=== PATIENT | female | born 2000 | race Native Hawaiian/Other Pacific Islander ===

== ENCOUNTER 2022-04-24 17:03 | Observation (INO) | payer MEDICAID ==
[2022-04-24 17:42] LABS: Appearance CLEAR (CLEAR); Bilirubin NEGATIVE (NEGATIVE); Dipstick done @ ? MAIN LAB; Glucose NEGATIVE (NEGATIVE); Ketones NEGATIVE (NEGATIVE); Nitrite NEGATIVE (NEGATIVE); Protein,Urine Dip NEGATIVE (Negative); RBC NEGATIVE Ery/ul (0-5); Urobilinogen 0.2 mg/dL (0-1)
[2022-04-24 17:44] LABS: Epithelial Cells RARE /HPF (FEW); Mucus SLIGHT /HPF (NEGATIVE); Urine Cultured Indicated? NO
[2022-04-24 17:46] LABS: Hemoglobin 10.4 g/dL (12.0-16.0); Mean Cell Volume 81.6 fL (78-100); Mean Corpuscular Hemoglobin 26.5 pg (26-32); Mean Corpuscular Hgb Concent. 32.5 g/dL (32-36); Mean Platelet Volume 11.5 fL (7.5-11.0); Platelet Count 206 x10^3/uL (150-450); Red Blood Count 3.92 x10^6/uL (4.1-5.4); Red Cell Distribution Width 13.5 % (11.5-14.0); White Blood Count 11.3 x10^3/uL (4.0-10.5)
[2022-04-24 17:58] LABS: Amphetamine,Urine NEGATIVE (NEGATIVE); Barbiturate,Urine NEGATIVE (NEGATIVE); Benzodiazepine,Urine NEGATIVE (NEGATIVE); Cocaine,Urine NEGATIVE (NEGATIVE); Opiate,Urine NEGATIVE (NEGATIVE); PCP,Urine NEGATIVE (NEGATIVE); THC,Urine NEGATIVE (NEGATIVE)
[2022-04-24 17:59] LABS: ALBUMIN 3.5 g/dL (3.5-5.0); ALKALINE PHOSPHATASE 131 U/L (38-126); ANION GAP 10.7 MEQ/L (5-15); BLOOD UREA NITROGEN 5 mg/dL (7-17); CHLORIDE 106 mmol/L (98-107); Calcium 9.7 mg/dL (8.4-10.2); Carbon Dioxide 22 mmol/L (22-30); Creatinine 1 0.51 mg/dL (0.52-1.04); EST GLOMERULAR FILTRATION RATE > 60.0 ML/MIN; Glucose 93 mg/dL (74-106); SGOT/AST 14 U/L (14-36); SGPT/ALT 11 U/L (0-35); SODIUM 136 mmol/L (137-145); Total Protein 6.7 g/dL (6.3-8.2); Uric Acid 3.4 mg/dL (2.6-6.0)
[2022-04-24 18:03] LABS: Methadone,Urine NEGATIVE (NEGATIVE)
[2022-04-24 18:22] LABS: Potassium 2.9 mmol/L (3.5-5.1)
[2022-04-24 18:33] LABS: Creatinine, Urine Random 91.4 mg/dl; Protein Creatinine Ratio, Ran. 0.22 mg/mg (0.0-0.15)
[2022-04-24] MEDS ORDERED: Klor Con PO ONE ×2 (18:34→18:51)
[2022-04-24] MEDS ORDERED: POTASSIUM CHLORIDE 20 mEq IN WATER 100ML 20 MEQ/100 ML BAG IV ONE (18:35)
[2022-04-24] MEDS ORDERED: POTASSIUM CHLORIDE 20 mEq IN WATER 100ML 100 ML IV ONE (18:51)
[2022-04-24] MEDS ORDERED: Sodium Chloride 0.9% 1000 ML 1,000 ML ONE (18:59)
[2022-04-24] MEDS ORDERED: Adalat CC 30 MG TABLET PO ONE (19:10)
--- NOTE | 2022-04-24 19:17 | PCM.HP ---
History of Present Illness - Chief Complaint Chief Complaint: OB Check History of Present Illness: is a 22 year old female. 22 yo iup 35 wks gestation with no signific pmhx with hx of previous here for evaluation of questionable rupture of membrane at 930 with mild uterine cramping. denies vaginal bleeding. sees a provider in [place] with dr denney for care.. states hx of genital herpes however denies any outbreak at this time. 170/97, 162/99, 147/98, 148/78, 150/77 labs; cmp potassium 2.9 liver enzymes normal amnisure; negative urine tox; normal pelvix exam; closed posterior a/p iup at 35 wks with gestational htn, hypokalemia will give kcl 20meq iv x 1 will give kcl 20meq po x 1 today will give rx kcl 20meq for next two days will give procardia 30mg xl now and will continue daily secondary to elevated pulse will fu with provider in [place] as scheduled - Social History Smoking Status: Heavy tobacco smoker How long have you smoked: 3-4 years Exposure to second hand smoke: Yes - Physical Exam Vital Signs: Vital Signs - 24 hr Temp Pulse Resp BP BP Pulse Ox 04/24/22 18:35 99 H 150/70 99 04/24/22 18:25 100 H 150/72 100 04/24/22 18:15 97 H 159/74 96 04/24/22 18:05 100 H 149/66 100 04/24/22 17:50 112 H 150/77 04/24/22 17:47 97.8 F 118 H 20 148/78 98 04/24/22 17:45 110 H 18 148/78 99 04/24/22 17:30 115 H 147/98 04/24/22 17:13 109 H 20 162/99 04/24/22 17:05 97.8 F 118 H 18 173/97 98 04/24/22 17:03 97.8 F 118 H 20 162/99 98 Neurologic Exam: alert, oriented x 3 Pelvic Exam: other (closed posterior) Results - Labs Lab/Micro Results: Lab Results-Last 24 Hours 04/24/22 04/24/22 04/24/22 Range/Units 17:20 17:20 17:20 WBC (4.0-10.5) x10^3/uL RBC (4.1-5.4) x10^6/uL Hgb (12.0-16.0) g/dL Hct (35-47) % MCV (78-100) fL MCH (26-32) pg MCHC (32-36) g/dL RDW (11.5-14.0) % Plt Count (150-450) x10^3/uL MPV (7.5-11.0) fL Sodium (137-145) mmol/L Potassium (3.5-5.1) mmol/L Chloride (98-107) mmol/L Carbon Dioxide (22-30) mmol/L Anion Gap (5-15) MEQ/L BUN (7-17) mg/dL Creatinine (0.52-1.04) mg/dL Estimated GFR ML/MIN Glucose (74-106) mg/dL Uric Acid (2.6-6.0) mg/dL Calcium (8.4-10.2) mg/dL Total Bilirubin (0.2-1.3) mg/dL AST (14-36) U/L ALT (0-35) U/L Alkaline Phosphatase (38-126) U/L Serum Total Protein (6.3-8.2) g/dL Albumin (3.5-5.0) g/dL Urinalys Dipstick Clnc MAIN LAB Urine Color YELLOW (YELLOW) Urine Appearance CLEAR (CLEAR) Urine pH 7.0 (5-6) Ur Specific [place] 1.020 (1.005-1.025) POC Urine Protein Conf NEGATIVE (Negative) Urine Ketones NEGATIVE (NEGATIVE) Urine Nitrite NEGATIVE (NEGATIVE) Urine Bilirubin NEGATIVE (NEGATIVE) Urine Urobilinogen 0.2 (0-1) mg/dL Urine Leukocytes NEGATIVE (NEGATIVE) Urine WBC (Auto) 6-10 (0-5) /HPF Urine RBC (Auto) NONE (0-2) /HPF U Epithel Cells (Auto) RARE (FEW) /HPF Urine Bacteria (Auto) NONE (NEGATIVE) /HPF Urine RBC NEGATIVE (0-5) Deniz/ul Urine Mucus (Auto) SLIGHT (NEGATIVE) /HPF Ur Culture Indicated? NO Ur Random Creatinine mg/dl U Random Total Protein (<12) mg/dl U [place] Prot/Creat Ratio (0.0-0.15) mg/mg Urine Glucose NEGATIVE (NEGATIVE) mg/dL POC Amnio Swab Test Negative Urine Opiates Level NEGATIVE (NEGATIVE) Ur Methadone NEGATIVE (NEGATIVE) Urine Barbiturates NEGATIVE (NEGATIVE) Ur Phencyclidine (PCP) NEGATIVE (NEGATIVE) Urine Amphetamine NEGATIVE (NEGATIVE) U Benzodiazepine Level NEGATIVE (NEGATIVE) Urine Cocaine NEGATIVE (NEGATIVE) Urine Marijuana (THC) NEGATIVE (NEGATIVE) 04/24/22 04/24/22 04/24/22 Range/Units 17:20 17:37 17:37 WBC 11.3 H (4.0-10.5) x10^3/uL RBC 3.92 L (4.1-5.4) x10^6/uL Hgb 10.4 L (12.0-16.0) g/dL Hct 32.0 L (35-47) % MCV 81.6 (78-100) fL MCH 26.5 (26-32) pg MCHC 32.5 (32-36) g/dL RDW 13.5 (11.5-14.0) % Plt Count 206 (150-450) x10^3/uL MPV 11.5 H (7.5-11.0) fL Sodium 136 L (137-145) mmol/L Potassium 2.9 L* (3.5-5.1) mmol/L Chloride 106 (98-107) mmol/L Carbon Dioxide 22 (22-30) mmol/L Anion Gap 10.7 (5-15) MEQ/L BUN 5 L (7-17) mg/dL Creatinine 0.51 L (0.52-1.04) mg/dL Estimated GFR > 60.0 ML/MIN Glucose 93 (74-106) mg/dL Uric Acid 3.4 (2.6-6.0) mg/dL Calcium 9.7 (8.4-10.2) mg/dL Total Bilirubin 0.50 (0.2-1.3) mg/dL AST 14 (14-36) U/L ALT 11 (0-35) U/L Alkaline Phosphatase 131 H (38-126) U/L Serum Total Protein 6.7 (6.3-8.2) g/dL Albumin 3.5 (3.5-5.0) g/dL Urinalys Dipstick Clnc Urine Color (YELLOW) Urine Appearance (CLEAR) Urine pH (5-6) Ur Specific [place] (1.005-1.025) POC Urine Protein Conf (Negative) Urine Ketones (NEGATIVE) Urine Nitrite (NEGATIVE) Urine Bilirubin (NEGATIVE) Urine Urobilinogen (0-1) mg/dL Urine Leukocytes (NEGATIVE) Urine WBC (Auto) (0-5) /HPF Urine RBC (Auto) (0-2) /HPF U Epithel Cells (Auto) (FEW) /HPF Urine Bacteria (Auto) (NEGATIVE) /HPF Urine RBC (0-5) Deniz/ul Urine Mucus (Auto) (NEGATIVE) /HPF Ur Culture Indicated? Ur Random Creatinine 91.4 mg/dl U Random Total Protein 20.0 (<12) mg/dl U [place] Prot/Creat Ratio 0.22 H (0.0-0.15) mg/mg Urine Glucose (NEGATIVE) mg/dL POC Amnio Swab Test Urine Opiates Level (NEGATIVE) Ur Methadone (NEGATIVE) Urine Barbiturates (NEGATIVE) Ur Phencyclidine (PCP) (NEGATIVE) Urine Amphetamine (NEGATIVE) U Benzodiazepine Level (NEGATIVE) Urine Cocaine (NEGATIVE) Urine Marijuana (THC) (NEGATIVE) - Other Procedures and Tests Respiratory Therapy 04/24/22 17:58 Smoking Cessation Education ONCE Assessment/Plan (1) Gestational hypertension affecting second Current Visit: Yes Status: Acute Code(s): O13.9 - GESTATIONAL HTN W/O SIGNIFICANT PROTEINURIA, UNSP TRIMESTER (2) Hypokalemia Current Visit: Yes Status: Acute Code(s): E87.6 - HYPOKALEMIA (3) Genital herpes affecting Current Visit: Yes Status: Acute Code(s): O98.319 - OTH INFECT W SEXL MODE OF TRANSMISS COMP PREG, UNSP TRI; A60.09 - HERPESVIRAL INFECTION OF OTHER UROGENITAL TRACT
[2022-04-24] MEDS ORDERED: Sodium Chloride 0.9% 1000 ML 1,000 ML IV SCH (19:30)
[2022-04-24 20:07] VITALS: O2SAT 100
[2022-04-24 21:28] VITALS: BP 139/81; PULSE 130
[2022-04-25] MEDS ORDERED: Adalat CC 30 MG TABLET PO SCH (10:00)
== END 2022-04-24 21:22 | disposition home or self-care (01) ==
LOC: OB 17:03
PROVIDERS: ADMIT Obstetrics & Gynecology; ATTEND Obstetrics & Gynecology
DX: Z34.83 Encounter for supervision of other normal pregnancy, third trimester (principal); Z3A.35 35 weeks gestation of pregnancy
CPT/HCPCS: 36415; 80053; 80307; 81015; 82570; 84112; 84156; 84550; 85027; 93012; G0378; J3480; A9270-GY

== ENCOUNTER 2024-08-09 17:18 | Emergency (ER) | payer OTHER ==
[2024-08-09 18:02] VITALS: RESP 18; TEMP 97.8; O2SAT 100
[2024-08-09 18:15] LABS: HCG URINE TEST NEGATIVE (NEGATIVE)
[2024-08-09 18:19] LABS: Appearance Clear (Clear); Bacteria None Seen /HPF (None Seen); Bilirubin Negative (Negative); Blood Large (Negative); Epithelial Cells None Seen /HPF (None Seen); Glucose, Urine Negative (Negative); Hyaline Casts NONE SEEN /LPF (0-2); Ketones Negative (Negative); Leukocyte Esterase Negative (Negative); Nitrite Negative (Negative); Ph 5.5 (4.6-8.0); Protein,Urine Dip Negative (Negative); RBC 21-50 /HPF (0-5); Urobilinogen 0.2 mg/dL (0.2)
[2024-08-09 18:47] LABS: BASOPHIL % 0.8 % (0.1-1.2); Basophil (Absolute #) 0.06 x10^3/uL (0.01-0.08); Eosinophil % 3.6 % (0.7-5.8); Eosinophil (Absolute #) 0.28 x10^3/uL (0.04-0.36); Hematocrit 39.4 % (34.1-44.9); Hemoglobin 12.5 g/dL (11.2-15.7); IMMATURE GRAN # 0.02 x10^3u/L (0.001-0.031); IMMATURE GRAN % 0.3 % (0.001-0.429); Lymphocyte (Absolute #) 2.21 x10^3/uL (1.18-3.74); Lymphocytes % 28.4 % (19.3-51.7); Mean Cell Volume 77.6 fL (79.4-94.8); Mean Corpuscular Hemoglobin 24.6 pg (25.6-32.2); Mean Corpuscular Hgb Concent. 31.7 g/dL (32.2-35.5); Mean Platelet Volume 11.6 fL (9.4-12.3); Monocytes % 6.4 % (4.7-12.5); Neutrophil % 60.5 % (34.0-71.1); Platelet Count 218 x10^3/uL (182-369); Red Blood Count 5.08 x10^6/uL (3.93-5.22); Red Cell Distribution Width 14.2 % (11.7-14.4); White Blood Count 7.8 x10^3/uL (3.98-10.04)
--- NOTE | 2024-08-09 18:55 | ERPHSYRPT ---
- History of Present Illness Source: patient Exam Limitations: no limitations Patient Subjective Stated Complaint: Vaginal bleeding Triage Nursing Assessment: Patient ambulated back to ED and transferred self to bed. Patient A+O X3. Patient's skin pink, warm and dry. Patient complains of vaginal bleeding for the past 20 days. Patient states she had a vaginal on 04/21/2024 and started on Depo shot in April. Patient states she has been bleeding vaginally since July 21, 2024. Patient states she is using 5-6 regular pads a day. Patient complains of intermittent cramping. Timing/Duration: week(s) Activites at Onset: none Severity of Pain-Max: none Severity of Pain-Current: none Prior abdominal problems: other (vaginal delivery March 2024) Sexual intercourse history: single partner, unprotected intercourse Modifying Factors: Improves With: nothing Associated Symptoms: No abdominal pain, No fever, No chills, No nausea, No vomiting, No Hx Influenza Vaccination/Date Given: No Hx Pneumococcal Vaccination/Date Given: No <FIORELLA KIM - Last Filed: 08/09/24 18:58> <ALISSA MARCANO - Last Filed: 08/09/24 19:28> - History of Present Illness Time Seen by Provider: 08/09/24 18:20 Physician History: 24yo f presents via private vehicle for continued vaginal bleeding that she reports has been ongoing x 20d. Pt reports she had a spontaneous vaginal delivery w/o complications 4 months ago. Pt reports she was started on depo- provera control injection in april, had a normal menstrual cycle in april, then in may had 17 days of menstrual bleeding, started menstruation in mid june and has had continued bleeding since. Pt reports her bleeding is not particularly heavy, has not been passing large clots, does not endorse any recent trauma to the abdomen, denies recent intercourse. Pt denies any significant abdominal pain, denies dysuria or frequency, denies any vomiting or diarrhea. (FIORELLA KIM) Allergies/Adverse Reactions: No Known Drug Allergies Allergy (Unverified 08/09/24 17:51) Home Medications: No Reportable Medications [No Reported Medications] 08/09/24 [History] Travel Risk - International Travel Have you traveled outside of the country in past 3 weeks: No - Emerging Infectious Disease Are you exhibiting symptoms associated with any current EIDs: No <FIORELLA KIM - Last Filed: 08/09/24 18:58> - Review of Systems Constitutional: No Symptoms Respiratory: No Symptoms Cardiac: No Symptoms Abdominal/Gastrointestinal: No Symptoms Genitourinary Symptoms: Vaginal Bleeding <FIORELLA KIM - Last Filed: 08/09/24 18:58> - Past Medical History Pertinent Past Medical History: No Neurological History: No Pertinent History ENT History: No Pertinent History Cardiac History: No Pertinent History Respiratory History: No Pertinent History Endocrine Medical History: No Pertinent History Musculoskeletal History: No Pertinent History GI Medical History: No Pertinent History History: No Pertinent History Psycho-Social History: No Pertinent History Female Reproductive Disorders: No Pertinent History - Past Surgical History Past Surgical History: No Neuro Surgical History: No Pertinent History Cardiac: No Pertinent History Respiratory: No Pertinent History Gastrointestinal: No Pertinent History Genitourinary: No Pertinent History Musculoskeletal: No Pertinent History Female Surgical History: No Pertinent History Other Surgical History: 3 vaginal births - Female History Hx Last Menstrual Period: July 04, 2024 Hx Now: No - Social History Smoking Status: Current every day smoker How long have you smoked: years Exposure to second hand smoke: Yes Drug Use: marijuana - Social Determinants of Health Will the patient participate in the screening: Yes Do you worry about a steady place to live?: No Do you have any problems with any of the following?: No known problems In the past 12 months,have you had to go without utilities?: No Transportation Issues: No Has anyone in your support network made you feel unsafe?: No Have you or anyone in your house had to go without enough: No <FIORELLA KIM - Last Filed: 08/09/24 18:58> - Physical Exam General Appearance: no apparent distress, alert Respiratory Exam: normal breath sounds, lungs clear, airway intact, No chest tenderness, No respiratory distress Cardiovascular Exam: regular rate/rhythm, normal heart sounds, normal peripheral pulses Gastrointestinal/Abdomen Exam: soft, normal bowel sounds, No tenderness, No distention, No mass, No guarding, No rebound, No organomegaly SpO2 Interpretation: normal SpO2: 100 O2 Delivery: Room Air <FIORELLA KIM - Last Filed: 08/09/24 18:58> - Nursing Vital Signs Nursing Vital Signs: Initial Vital Signs Temperature 97.8 F 08/09/24 17:52 Pulse Rate 94 H 01/11/25 17:52 Respiratory Rate 18 08/09/24 17:52 Blood Pressure 115/88 08/09/24 17:52 O2 Sat by Pulse Oximetry 100 08/09/24 17:52 Pain Scale Pain Intensity 4 Ordered Tests: Active Orders 24 hr Category Date Time Status CBC W DIFF Stat Lab 08/09/24 18:40 Completed CMP Stat Lab 08/09/24 18:40 Completed HCG QUALITATIVE, URINE Stat Lab 08/09/24 18:03 Completed PROTIME WITH INR Stat Lab 08/09/24 18:40 Completed PTT Stat Lab 08/09/24 18:40 Completed UA W/RFX UR CULTURE Stat Lab 08/09/24 18:03 Completed Lab/Rad Data: Laboratory Result Diagrams 08/09/24 18:40 08/09/24 18:40 Laboratory Results 08/09/24 08/09/24 08/09/24 Range/Units 18:40 18:40 18:40 WBC (3.98-10.04) x10^3/uL RBC (3.93-5.22) x10^6/uL Hgb (11.2-15.7) g/dL Hct (34.1-44.9) % MCV (79.4-94.8) fL MCH (25.6-32.2) pg MCHC (32.2-35.5) g/dL RDW (11.7-14.4) % Plt Count (182-369) x10^3/uL MPV (9.4-12.3) fL Gran % (34.0-71.1) % Immature Gran % (Auto) (0.001-0.429) % Nucleat RBC Rel Count (0.00-0.2) % Eos # (Auto) (0.04-0.36) x10^3/uL Immature Gran # (Auto) (0.001-0.031) x10^3u/L Absolute Lymphs (auto) (1.18-3.74) x10^3/uL Absolute Monos (auto) (0.24-0.86) x10^3/uL Absolute Nucleated RBC (0.00-0.012) x10^3u/L Lymphocytes % (19.3-51.7) % Monocytes % (4.7-12.5) % Eosinophils % (0.7-5.8) % Basophils % (0.1-1.2) % Absolute Granulocytes (1.56-6.13) x10^3/uL Basophils # (0.01-0.08) x10^3/uL PT 10.7 (9.4-12.5) SECONDS INR 0.98 (0.8-3.0) APTT 26.8 (25.1-36.5) SECONDS Sodium 138 (135-145) mmol/L Potassium 4.5 (3.5-5.1) mmol/L Chloride 107 (98-107) mmol/L Carbon Dioxide 22 (22-30) mmol/L Anion Gap 12.8 (5-15) MEQ/L BUN 13 (7-17) mg/dL Creatinine 0.76 (0.52-1.04) mg/dL Estimated GFR 113.6 ML/MIN Glucose 90 (74-106) mg/dL Calcium 9.7 (8.4-10.2) mg/dL Iron 40 (37-170) ug/dL Total Bilirubin 0.30 (0.2-1.3) mg/dL AST 30 (14-36) U/L ALT 36 H (0-35) U/L Alkaline Phosphatase 71 (38-126) U/L Serum Total Protein 8.0 (6.3-8.2) g/dL Albumin 4.6 (3.5-5.0) g/dL Urine Color (Yellow) Urine Appearance (Clear) Urine pH (4.6-8.0) Ur Specific [place] (1.005-1.030) Urine Protein (Negative) Urine Glucose (UA) (Negative) mg/dL Urine Ketones (Negative) Urine Blood (Negative) Urine Nitrite (Negative) Urine Bilirubin (Negative) Urine Urobilinogen (0.2) mg/dL Ur Leukocyte Esterase (Negative) U Hyaline Cast (Auto) (0-2) /LPF Urine Microscopic RBC (0-5) /HPF Urine Microscopic WBC (0-5) /HPF Ur Epithelial Cells (None Seen) /HPF Urine Bacteria (None Seen) /HPF Urine Culture Reflexed (NO) Urine HCG, Qual (NEGATIVE) 08/09/24 08/09/24 08/09/24 Range/Units 18:40 18:03 18:03 WBC 7.8 (3.98-10.04) x10^3/uL RBC 5.08 (3.93-5.22) x10^6/uL Hgb 12.5 (11.2-15.7) g/dL Hct 39.4 (34.1-44.9) % MCV 77.6 L (79.4-94.8) fL MCH 24.6 L (25.6-32.2) pg MCHC 31.7 L (32.2-35.5) g/dL RDW 14.2 (11.7-14.4) % Plt Count 218 (182-369) x10^3/uL MPV 11.6 (9.4-12.3) fL Gran % 60.5 (34.0-71.1) % Immature Gran % (Auto) 0.3 (0.001-0.429) % Nucleat RBC Rel Count 0.0 (0.00-0.2) % Eos # (Auto) 0.28 (0.04-0.36) x10^3/uL Immature Gran # (Auto) 0.02 (0.001-0.031) x10^3u/L Absolute Lymphs (auto) 2.21 (1.18-3.74) x10^3/uL Absolute Monos (auto) 0.50 (0.24-0.86) x10^3/uL Absolute Nucleated RBC 0.00 (0.00-0.012) x10^3u/L Lymphocytes % 28.4 (19.3-51.7) % Monocytes % 6.4 (4.7-12.5) % Eosinophils % 3.6 (0.7-5.8) % Basophils % 0.8 (0.1-1.2) % Absolute Granulocytes 4.70 (1.56-6.13) x10^3/uL Basophils # 0.06 (0.01-0.08) x10^3/uL PT (9.4-12.5) SECONDS INR (0.8-3.0) APTT (25.1-36.5) SECONDS Sodium (135-145) mmol/L Potassium (3.5-5.1) mmol/L Chloride (98-107) mmol/L Carbon Dioxide (22-30) mmol/L Anion Gap (5-15) MEQ/L BUN (7-17) mg/dL Creatinine (0.52-1.04) mg/dL Estimated GFR ML/MIN Glucose (74-106) mg/dL Calcium (8.4-10.2) mg/dL Iron (37-170) ug/dL Total Bilirubin (0.2-1.3) mg/dL AST (14-36) U/L ALT (0-35) U/L Alkaline Phosphatase (38-126) U/L Serum Total Protein (6.3-8.2) g/dL Albumin (3.5-5.0) g/dL Urine Color Yellow (Yellow) Urine Appearance Clear (Clear) Urine pH 5.5 (4.6-8.0) Ur Specific [place] 1.020 (1.005-1.030) Urine Protein Negative (Negative) Urine Glucose (UA) Negative (Negative) mg/dL Urine Ketones Negative (Negative) Urine Blood Large A (Negative) Urine Nitrite Negative (Negative) Urine Bilirubin Negative (Negative) Urine Urobilinogen 0.2 (0.2) mg/dL Ur Leukocyte Esterase Negative (Negative) U Hyaline Cast (Auto) NONE SEEN (0-2) /LPF Urine Microscopic RBC 21-50 A (0-5) /HPF Urine Microscopic WBC 3-5 (0-5) /HPF Ur Epithelial Cells None Seen (None Seen) /HPF Urine Bacteria None Seen (None Seen) /HPF Urine Culture Reflexed NO (NO) Urine HCG, Qual NEGATIVE (NEGATIVE) <FIORELLA KIM - Last Filed: 08/09/24 18:58> - Progress Progress: improved Blood Culture(s) Obtained: No Antibiotics given: No Counseled pt/family regarding: lab results, diagnosis <ALISSA MARCANO - Last Filed: 08/09/24 19:28> - Progress Progress Note: 08/09/24 18:58 discussed pt case w/ Dr Marcano who will assume care at 19:00 (FIORELLA KIM) 08/09/24 19:26 Labs unremarkable, bleeding likely secondary to Depo shot. Advised f/u with OB to discuss options. (ALISSA MARCANO) Medical Desision Making - Diagnostic Testing Diagnostic test were ordered, analyzed, and reviewed by me: Yes Radiological Interpretation: Interpreted by me - Risk of complications Low Risk: Low risk of morbidity from additional dx testing or treatment <ALISSA MARCANO - Last Filed: 08/09/24 19:28> - Departure Departure Disposition: Home Critical Care Time: No <FIORELLA KIM - Last Filed: 08/09/24 18:58> - Departure Critical Care Time: No <ALISSA MARCANO - Last Filed: 08/09/24 19:28> - Departure Clinical Impression: Prolonged periods Menorrhagia Qualifiers: Menorrhagia type: with irregular cycle Qualified Code(s): N92.1 - Excessive and frequent menstruation with irregular cycle Condition: Good Referrals: DOCTOR,NO FAMILY [Primary Care Provider] - Follow up/PCP as directed Instructions: Medroxyprogesterone
[2024-08-09 19:02] VITALS: PULSE 81
[2024-08-09 19:04] LABS: ALBUMIN 4.6 g/dL (3.5-5.0); ANION GAP 12.8 MEQ/L (5-15); BILIRUBIN,TOTAL 0.3 mg/dL (0.2-1.3); Calcium 9.7 mg/dL (8.4-10.2); Creatinine 1 0.76 mg/dL (0.52-1.04); EST GLOMERULAR FILTRATION RATE 113.6 ML/MIN; Potassium 4.5 mmol/L (3.5-5.1)
[2024-08-09 19:06] LABS: INR 0.98 (0.8-3.0); PROTIME 10.7 SECONDS (9.4-12.5); PTT 26.8 SECONDS (25.1-36.5)
[2024-08-09 19:35] VITALS: BP 135/83
== END 2024-08-09 19:35 | disposition home or self-care (01) ==
LOC: ED 17:18
DX: N92.1 Excessive and frequent menstruation with irregular cycle (principal); Z72.0 Tobacco use
CPT/HCPCS: 36415; 80053; 81001; 81025; 83540; 85025; 85610; 85730; 99282; 99283